=== PATIENT | female | born 1990 | race Caucasian/White ===

== ENCOUNTER 2017-06-21 23:27 | Emergency (ER) | payer SELFPAY ==
[~2017-06-21] VITALS: Ht 170.2 cm; Wt 63.5 kg
[2017-06-21 23:29] VITALS: BP 120/79
--- NOTE | 2017-06-21 23:30 | NUR ---
TO LOBBY, AMB, V/S STABLE, EKG DONE, A/W FOR BED , ERMD NOTED
--- NOTE | 2017-06-22 01:10 | NUR ---
PATIENT CALLED FOR BED , NO RESPONSE
--- NOTE | 2017-06-22 01:20 | NUR ---
CALLED FOR THE SECOND TIME NO RESPONSE.
--- NOTE | 2017-06-22 01:30 | NUR ---
CALLED FOR THE THIRD TIME NO RESPONSE.PATIENT LEFT WITHOUT BEING SEEN BY DR. MARSHALL. NO FURTHER CARE PROVIDED FOR PATIENT.
== END 2017-06-22 01:30 | disposition left against medical advice (07) ==
LOC: MED 23:27
DX: R07.89 Other chest pain (principal); Z53.21 Procedure and treatment not carried out due to patient leaving prior to being seen by health care provider
CPT/HCPCS: 81025; 99281